=== PATIENT | female | born 1970 | race Caucasian/White ===

== ENCOUNTER 2018-04-09 09:11 | Day surgery (SDC) | payer OTHER ==
[2018-04-06 14:25] VITALS: BMI 33.3
[2018-04-09] MEDS ORDERED: MIDAZOLAM HCL 2 MG/2 ML SINGLE DOSE VIAL ONE (11:25)
--- NOTE | 2018-04-09 12:31 | OP ---
Operative Note - Note: Operative Date: 04/09/18 Pre-Operative Diagnosis: Left renal stone Operation: Left ESWL Findings: 5 mm mid and 3 mm low pole Left renal stone Post-Operative Diagnosis: Same as Pre-op Surgeon: Foreign Charles Anesthesia: Local, Fractional Estimated Blood Loss (mls): 0 Drains & Tubes with Location: none
[2018-04-09] MEDS ORDERED: ACETAMINOPHEN 325 MG TABLET (FP) PO ONE ×2 (12:58)
[2018-04-09] MEDS ORDERED: ONDANSETRON 4 MG/2 ML VIAL IVPUSH ONE ×2 (13:27→13:45)
[2018-04-09] MEDS ORDERED: ONDANSETRON 4 MG/2 ML VIAL ONE (13:29)
[2018-04-09 15:24] VITALS: BP 141/73; PULSE 53; TEMP 97.5
--- NOTE | 2018-05-13 15:35 | OP ---
DATE OF OPERATION: 04/09/2018 PREOPERATIVE DIAGNOSIS: Left renal stone. POSTOPERATIVE DIAGNOSIS: Left renal stone. PROCEDURE: Left extracorporeal shock-wave lithotripsy. ATTENDING: Doni Calle MD ANESTHESIA: Fractional. OPERATION: The patient was brought in the operating room, placed in the supine position on the operating room table. Ultrasonography and fluoroscopy were performed. Two stones were identified in the left lower pole, one measuring 5 mm, the other measuring 3 mm. Shock-wave lithotripsy was then performed on both these stones after preoperative antibiotics and anesthesia had been started. There were no complications noted. The disposition of the patient was to recovery room. DONI CALLE M.D. [id number]
== END 2018-04-09 14:25 | disposition home or self-care (01) ==
LOC: JASU-SURG 09:11
PROVIDERS: ATTEND Urology
PROC: 0TF4XZZ Fragmentation in Left Kidney Pelvis, External Approach (ICD-10-PCS; principal; 2018-04-09 11:00)
DX: N20.0 Calculus of kidney (principal)
CPT/HCPCS: 84703